=== PATIENT | male | born 1990 ===

== ENCOUNTER → 2019-01-21 20:53 | Outpatient (ROUT) | payer OTHER, SELFPAY ==
[2019-01-21 21:28] LABS: Add Manual Diff / Slide Review NO; Basophils Absolute Auto 100 /uL (0-100); Basophils Percent Auto 1.1 % (0-2); Eosinophils Absolute Auto 300 /uL (0-450); Eosinophils Percent Auto 5.5 % (2-4); Hematocrit 49.3 % (41-53); Hemoglobin 16.3 g/dL (13.5-17.5); Lymphocytes Absolute Auto 2100 /uL (1100-4500); Lymphocytes Percent Auto 37.3 % (25-40); Mean Corpuscular HGB Conc 33.1 % (30-36); Mean Corpuscular Hemoglobin 29.1 PG (26-34); Mean Corpuscular Volume 87.9 fL (80-100); Monocytes Absolute Auto 500 /uL (0-900); Monocytes Percent Auto 8.5 % (3-14); Neutrophils Absolute Auto 2700 /uL (1500-7000); Neutrophils Percent Auto 47.6 % (50-75); Platelet Count 301 X10^3/uL (150-400); Red Blood Cell Count 5.61 X10^6/uL (4.5-5.9); White Blood Cell Count 5.6 X10^3/uL (4.5-11.0)
[2019-01-21 21:31] LABS: HEMOLYSIS < 15 (0-50)
[2019-01-21 21:41] LABS: Alanine Aminotransferase 48 IU/L (21-72); Albumin 4.7 g/dL (3.5-5.0); Albumin Globulin Ratio 1.8 (1.0-2.8); Alkaline Phosphatase 74 U/L (38-126); Aspartate Aminotransferase 30 IU/L (17-59); Bilirubin Total 0.4 mg/dL (0.2-1.3); Blood Urea Nitrogen 16 mg/dL (9-20); Calcium 9.5 mg/dL (8.4-10.2); Carbon Dioxide 26 mmol/L (22-32); Chloride 101 mmol/L (98-107); Estimated Glomerular Filt Rate > 60.0 mL/min (>60); Globulin 2.6 g/dL (1.7-4.1); Glucose 89 mg/dL (70-100); Potassium 4.2 mmol/L (3.4-5.1); Sodium 139 mmol/L (137-145); Total Protein 7.3 g/dL (6.3-8.2)
[2019-01-21 22:07] LABS: Thyroid Stimulating Hormone 0.53 uIU/mL (0.47-4.68)
[2019-01-21 22:11] LABS: Estradiol, Total 24.9 pg/mL
[2019-01-21 22:18] LABS: Ferritin 43.8 ng/mL (17.9-464)
== END ==
PROVIDERS: Visit Provider Naturopath
DX: Z13.89 Encounter for screening for other disorder (principal); G47.00 Insomnia, unspecified; R53.83 Other fatigue; F43.23 Adjustment disorder with mixed anxiety and depressed mood
CPT/HCPCS: 36415; 80053; 82627; 82670; 82728; 84270; 84402; 84403; 84439; 84443; 84481; 84482; 85025